=== PATIENT | female | born 1970 | race Caucasian/White ===

== ENCOUNTER 2016-09-27 07:02 | Emergency (ER) | payer OTHER ==
--- NOTE | 2016-09-27 07:26 | UC ---
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 Initially cough/wheeze which has disappear then nasal congestion/sinus pain and ear ache which have cleared now with sore throat no f/c no myalgia no cp or sob - History of Current Complaint Chief Complaint: UCRespiratory Stated Complaint: SORE THROAT Time Seen by Provider: 09/27/16 07:17 Hx Obtained From: Patient Hx Last Menstrual Period: 09/24/16 Onset/Duration: Gradual Onset, Lasting Days Timing: Constant Severity Initially: Mild Severity Currently: Moderate Pain Intensity: 4 Pain Scale Used: 0-10 Numeric Character: Cough: Nonproductive Aggravating Factors: Nothing Associated Signs And Symptoms: Positive: Nasal Congestion - better, Hoarseness - slight - Allergies/Home Medications Allergies/Adverse Reactions: Allergies Allergy/AdvReac Type Severity Reaction Status Date / Time Penicillins Allergy Anaphylatic Verified 09/27/16 07:08 Shock Erythromycin AdvReac GI Upset Verified 09/27/16 07:08 Home Medications: Home Medications Acetaminophen [Acetaminophen Extra Stren] 500 mg PO ONCE PRN 09/27/16 [History Confirmed 09/27/16] Escitalopram (NF) [Lexapro 10 mg (NF)] 10 mg PO BEDTIME 09/27/16 [History Confirmed 09/27/16] PMH/Surg Hx/FS Hx/Imm Hx Previously Healthy: Yes - Surgical History Surgical History: Yes Surgery Procedure, Year, and Place: 2 - Family History Known Family History: Positive: Hypertension - Social History Alcohol Use: Occasionally Substance Use Type: None Smoking Status (MU): Never Smoked Tobacco Review of Systems Constitutional: Negative Skin: Negative Eyes: Negative ENT: Sore Throat, Ear Ache, Nasal Discharge Respiratory: Cough Cardiovascular: Negative Gastrointestinal: Negative Genitourinary: Negative Motor: Negative Neurovascular: Negative Musculoskeletal: Negative Neurological: Negative Psychological: Negative All Other Systems Reviewed And Are Negative: Yes Physical Exam Triage Information Reviewed: Yes Appearance: Well-Appearing, No Pain Distress, Well-Nourished Vital Signs: Initial Vital Signs Temp 98.9 F 09/27/16 07:10 Pulse 59 09/27/16 07:10 Resp 16 09/27/16 07:10 BP 100/70 09/27/16 07:10 Pulse Ox 100 09/27/16 07:10 Vital Signs Reviewed: Yes Eyes: Positive: Conjunctiva Clear ENT: Positive: Hearing grossly normal, Pharyngeal erythema, TMs normal, Tonsillar swelling. Negative: Nasal congestion, Nasal drainage, Tonsillar exudate, Trismus, Muffled/hoarse voice Neck: Positive: Nontender, Enlarged Nodes @ - ant cervical Respiratory: Positive: Lungs clear, Normal breath sounds, No respiratory distress Cardiovascular: Positive: RRR, No Murmur Musculoskeletal: Positive: ROM Intact Neurological: Positive: Alert, Muscle Tone Normal Psychological Exam: Normal Skin Exam: Normal UC Diagnostic Evaluation - Laboratory O2 Sat by Pulse Oximetry: 100 Respiratory Course/Dx - Course Course Of Treatment: RS (-) - Differential Dx/Diagnosis Provider Diagnoses: acute phargngitis. viral URI Discharge - Discharge Plan Condition: Stable Disposition: HOME Patient Education Materials: Pharyngitis (ED) Referrals: Haider Hunter MD [Medical Doctor] - 2 Days (if not improved) Additional Instructions: your strep test was negative tylenol or advil if needed for pain recheck for new or worsening symptoms
== END 2016-09-27 07:44 | disposition home or self-care (01) ==
LOC: UCCORT 07:02
DX: J02.9 Acute pharyngitis, unspecified (principal); J06.9 Acute upper respiratory infection, unspecified; Z88.1 Allergy status to other antibiotic agents
CPT/HCPCS: 87651; 99201; G0463